=== PATIENT | female | born 1950 | race Caucasian/White ===

== ENCOUNTER → 2017-10-24 | Outpatient (CLI) | payer OTHER ==
--- NOTE | 2017-10-24 15:15 | MAMMOGRAPHY REPORT ---
BILATERAL DIGITAL DIAGNOSTIC MAMMOGRAM TOMOSYNTHESIS WITH CAD AND TARGETED RIGHT ULTRASOUND: 8 CLINICAL HISTORY: The patient reports her doctor felt a tender lump in the right breast during a rout ine clinical exam. The provider note reports a 1 cm density underneath the right nipple. TECHNIQUE: Breast tomosynthesis in addition to standard 2D mammography was performed. Current study was also evaluated with a Computer Aided Detection (CAD) system. Bilateral CC and MLO 2D and tomosyn thesis images were obtained. COMPARISON: Comparison is made to exams dated: 08/14/2016 mammogram and 07/03/2015 mammogram. BREAST COMPOSITION: The tissue of both breasts is heterogeneously dense, which may obscure small mas ses. FINDINGS: There are no suspicious masses, calcifications, or areas of architectural distortion noted in either breast. There has been no significant interval change mammographically compared to prior e xams. Scattered bilateral benign-appearing calcifications are not significantly changed. Targeted ultrasound was performed of the right subareolar breast in the region of the palpable lump f elt by the ordering provider. The background parenchymal echotexture is heterogeneous which somewhat reduces the sensitivity of the exam. However, no suspicious masses or other suspicious sonographic abnormalities were evident. One shadowing region was seen within the right 9:00 subareolar breast du ring antiradial imaging, which completely effaced on radial imaging and is therefore compatible with normal fibroglandular tissue. IMPRESSION: ACR BI-RADS CATEGORY 2: BENIGN, TARGETED ULTRASOUND ACR BI-RADS CATEGORY 2: BENIGN No suspicious mammographic or sonographic abnormality at the site of the palpable lump in the right s ubareolar breast. There is no mammographic or targeted sonographic evidence of malignancy. Recommend clinical follow-up for the right breast lump, and recommend routine bilateral screening mammograms i n one year. The patient has been verbally notified of the results. Approximately 10% of breast cancers are not detected with mammography. A negative mammographic report should not delay biopsy if a clinically suggestive mass is present. Chrissie Ng M.D. /:10/24/2017 12:23:45 [employer]: Radha Valdez, [facility] letter sent: Normal 1/2 BI-RADS Code: ACR BI-RADS Category 2: Benign Ultrasound BI-RADS: ACR BI-RADS Category 2: Benign
== END | disposition home or self-care (01) ==
LOC: C.MAMM 11:18
PROVIDERS: ATTEND Obstetrics & Gynecology
DX: N63.10 Unspecified lump in the right breast, unspecified quadrant (principal)